=== PATIENT | male | born 1985 | race Caucasian/White ===

== ENCOUNTER 2017-03-17 02:28 | Emergency (ER) | payer OTHER ==
[~2017-03-17] VITALS: Ht 180.3 cm; Wt 83.9 kg
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
--- NOTE | 2017-03-17 03:13 | NUR ---
DR. GARCIA AT BEDSIDE FOR EVAL.
--- NOTE | 2017-03-17 04:30 | NUR ---
PT TO RADIOLOGY FOR CT HEAD
--- NOTE | 2017-03-17 04:43 | NUR ---
PT RETURNED FROM CT.
--- NOTE | 2017-03-17 05:45 | NUR ---
Patient is resting comfortably in bed with eyes closed. Easily aroused. VSS
--- NOTE | 2017-03-17 06:31 | NUR ---
PER DR. ASHBY PT RHINA TO BE D/C. Patient discharged to home in stable condition. Written and verbal after care instructions given. Patient verbalizes understanding of instruction. ambulatory with a steady gait, pt aox4.
--- NOTE | 2017-03-17 06:32 | NUR ---
pt instructed not to drive. pt verbalize understanding.
[2017-03-17 06:33] VITALS: BP 108/64
== END 2017-03-17 06:33 | disposition home or self-care (01) ==
LOC: ER 02:28
DX: S09.90XA Unspecified injury of head, initial encounter (principal); S00.83XA Contusion of other part of head, initial encounter; S00.01XA Abrasion of scalp, initial encounter; F10.129 Alcohol abuse with intoxication, unspecified; R79.89 Other specified abnormal findings of blood chemistry; Z88.1 Allergy status to other antibiotic agents; W22.8XXA Striking against or struck by other objects, initial encounter; Y93.89 Activity, other specified; Y92.89 Other specified places as the place of occurrence of the external cause; Y99.9 Unspecified external cause status
CPT/HCPCS: 70450; 72125; 82962; 99284; A4606; Z7610